=== PATIENT | male | born 2005 | race African-American/Black ===

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

== ENCOUNTER 2025-05-18 20:29 | Emergency (ER) | payer SELFPAY ==
[2025-05-18 20:53] VITALS: BP 128/64; PULSE 79; RESP 22; TEMP 35.6; O2SAT 99; BMI 26.5
--- NOTE | 2025-05-18 20:54 | ED_ITS ---
HPI - General Adult General Chief complaint: Nausea/Vomiting/Diarrhea Stated complaint: lower abd pain/vomiting Time Seen by Provider: 05/18/25 23:04 Source: patient and family Limitations: no limitations History of Present Illness ED Provider: Diana Medina PA-C HPI narrative: 19-year-old male with a history of regular marijuana use, pancreatitis, who presents with epigastric pain prior to arrival. Pain is nonradiating, unable to describe the nature of his discomfort. Associated active nausea vomiting, the patient has had numerous episodes since onset of his symptoms. Denies sick contacts with similar symptoms, diarrhea, fever, or use of alcohol. Related Data Previous Rx's ?Medication ?Instructions ?Recorded sucralfate 100 mg/mL oral 10 ml PO QID PRN abdominal p ain 05/19/25 suspension (Carafate) #300 mL Allergies Allergy/AdvReac Type Severity Reaction Status Date / Time No Known Allergies (No Known Allergy Verified 05/18/25 20:58 Allergies*) Review of Systems 2 Review of Systems: Yes all other systems are reviewed and are negative Constitutional: Constitutional: Denies fatigue and Denies fever(s) Cardiovascular: Cardiovascular: Denies chest pain and Denies dyspnea Respiratory: Respiratory: Denies cough and Denies dyspnea Gastrointestinal: Gastrointestinal: Reports abdominal pain, Reports dyspepsia, Denies diarrhea, Reports nausea and Reports vomiting Endocrine: Endocrine: Denies fatigue PMFSH Past Medical History Attestation statement: The following information was validated with the patient. Medical History Necrotizing pancreatitis Gallstone Obesity Depressed ADHD Surgical History No pertinent past surgical history Family History Family History Mother No problems noted. Father No problems noted. Social History Social History Housing: Apartment Alcohol intake: never Patient Tobacco Use Status: Never used Tobacco Smoked in Last 30 Days: No e-Cigarette/Vaping Use: Never Used Second Hand Smoke Exposure: No Use of substances other than those prescribed or required for medical reasons: Yes Substance Use Type: Marijuana Advance Directives: No Advance Directives Information Provided: No Do you have a plan to hurt others: No Plan service: No Current occupational status: employed Current occupation: [employer]or([employer]) Current occupational exposures/hazards: No Cognitive needs: No Hearing needs: No Vision needs: No Physical Exam ED Vital Signs: Vital Signs - 24 hr 05/18/25 20:53 Temperature 96.0 F L Pulse Rate 79 Respiratory Rate 22 H Blood Pressure 128/64 Pulse Oximetry 99 Oxygen Delivery Method Room Air BMI result Body Mass Index 26.5 Const Other: Alert, appears as if he does not feel well Orientation/consciousness: patient oriented x3 Resp Effort & Inspection: normal respiratory effort Cardio Other: Normal peripheral perfusion GI Other: Abdomen is soft, nondistended nontender no guarding Skin Other: Warm dry no rash Neuro General: patient oriented x3, gait normal, no focal motor deficits and CN's II- XI intact bilaterally Psych Other: Cooperative Course Course Course Narrative: Medical screening exam performed. Please refer to detailed history, exam, evaluation, and management by primary provider. History of pancreatitis. Nausea and vomiting. No alcohol use. JS Medications Administered Discontinued Medications Generic Name Dose Route Start Last Admin Trade Name María Elena PRN Reason Stop Dose Admin Ceftriaxone Sodium 2 gm 05/18/25 23:33 05/18/25 23:41 Ceftriaxone Sodium 2 Gm Vial IVPUSH 05/18/25 23:34 2 gm ONCE ONE Administration Droperidol 2.5 mg 05/18/25 23:12 05/18/25 23:28 Droperidol 5 Mg/2 Ml Vial IVPUSH 05/18/25 23:13 2.5 mg ONCE ONE Administration Sodium Chloride 2,585.49 mls @ 2,585.49 mls/hr 05/18/25 23:04 05/19/25 01:12 Ns 30 ml/kg infuse over 1 hr (2585.49 ml) 05/19/25 00:03 Infused IV Infusion .Q1H STA Ondansetron HCl 4 mg 05/18/25 20:55 05/18/25 21:00 Ondansetron Odt 4 Mg Tab.Rapdis TRANSLINGU 05/18/25 20:56 4 mg ONCE ONE Administration Sucralfate 1 gm 05/18/25 23:33 05/18/25 23:41 Sucralfate Oral Suspension 1 Gm/10 Ml Oral.Susp PO 10/04/25 23:34 1 gm ONCE ONE Administration Medical Decision Making Medical Decision Making [facility] Narrative: 19-year-old male with a history of regular marijuana use, pancreatitis, who presents with epigastric pain prior to arrival. Pain is nonradiating, unable to describe the nature of his discomfort. Associated active nausea vomiting, the patient has had numerous episodes since onset of his symptoms. Denies sick contacts with similar symptoms, diarrhea, fever, or use of alcohol. Problem: Regular marijuana use History: Per patient and his mother I have considered the following differential diagnoses: Cannabinoid induced hyperemesis, viral gastritis, pancreatitis, GERD, biliary colic, cholecystitis Plan: Screening labs obtained from triage, they are overall unremarkable, there was no elevation in his LFTs or lipase. His abdominal exam was benign. I do feel his symptoms are secondary to cannabinoid induced hyperemesis, his mom confirms that he smokes marijuana on a regular basis. We will treat with IV fluid and droperidol. I do not feel he requires imaging. Unclear, however a lactic acid was obtained, it is elevated, I believe he is dehydrated, we will repeat after fluid resuscitation. I have independently reviewed the following tests: Labs: Slight leukocytosis, not anemic, left shift noted, lactic acid 3.7, repeat lactic acid 1.3, no electrolyte abnormalities, LFTs normal, lipase not elevated at 11, urine not infected, ethanol 26 Differential Diagnosis Differential Diagnoses: The differential diagnosis associated with the presentation includes See medical decision-making Admission/Observation Consideration of admission/observation: Escalation of care including admission/observation considered Not applicable Lab Data [facility] Lab Attestation statement: I reviewed the patient's lab results. 05/18/25 21:54 05/18/25 21:54 Labs: Lab Results 05/18/25 05/19/25 05/19/25 Range/Units 21:54 00:46 00:55 WBC 11.2 H (4.8-10.8) X10*3/uL RBC 4.97 (4.60-5.80) X10*6/uL Hgb 13.4 L (14.0-18.0) g/dl Hct 38.8 L (42.0-52.0) % MCV 78.1 L (80.0-98.0) fL MCH 27.0 (27.0-33.0) pg MCHC 34.5 (31.0-36.0) g/dl RDW 13.5 (11.0-16.0) % Plt Count 236 (160-400) X10*3/uL MPV 11.1 (9.4-12.4) fL Immature Gran % (Auto) 0.4 (0.0-0.4) % Neut % (Auto) 77.3 H (45-73) % Lymph % (Auto) 15.5 L (20-40) % [place] % (Auto) 6.1 (2-11) % Eos % (Auto) 0.4 (0-4) % Baso % (Auto) 0.3 (0-2) % Lymph # (Auto) 1.7 (1.2-4.9) X10*3/uL [place] # (Auto) 0.7 (0.1-1.2) X10*3/uL Eos # (Auto) 0.0 (0.0-0.4) X10*3/uL Baso # (Auto) 0.0 (0.0-0.2) X10*3/uL Abs Immat Gran (auto) 0.04 H (0.00-0.03) X10*3/uL Absolute Neuts (auto) 8.6 H (2.0-8.3) x10*3/uL Absolute Nucleated RBC 0.000 (0.0-0.012) X10*3/uL Nucleated RBC % (auto) 0.0 (0.0-0.2) /100WBC Sodium 143 (135-145) mmol/L Potassium 3.9 (3.3-5.1) mmol/L Chloride 108 (96-108) mmol/L Carbon Dioxide 23 (22-29) mmol/L Anion Gap 16 (12-20) BUN 13 (9-16) mg/dL Creatinine 0.78 (0.5-1.4) mg/dL Estim Creat Clear Calc 162.2 Estimated GFR > 60 Random Glucose 92 (60-115) mg/dL Lactic Acid 3.7 H* (0.5-2.0) mmol/L Lactic Acid F/U @ 2Hr 1.3 (0.5-2.0) mmol/L Calcium 9.5 (8.4-10.2) mg/dL Total Bilirubin 0.4 (0.0-1.0) mg/dL AST 36 (5-37) U/L ALT 23 (0-40) U/L Alkaline Phosphatase 67 (39-117) U/L Total Protein 7.3 (6.5-8.0) g/dL Albumin 4.9 (3.5-5.0) g/dL Lipase 11 (8-78) U/L Urine Color Yellow Urine Appearance Clear Urine pH 7.0 (5.0-9.0) Ur Specific [place] 1.015 (1.005-1.025) Urine Protein Negative (Neg-Trace) mg/dL Urine Glucose (UA) Negative (Negative) mg/dL Urine Ketones Negative (Negative) mg/dL Urine Blood Negative (Negative) Urine Nitrite Negative (Negative) Ur Leukocyte Esterase Negative (Negative) Ethyl Alcohol 26 mg/dL Discharge Plan Discharge Clinical Impression: Cannabinoid hyperemesis syndrome Patient Disposition: Home, Self-Care Additional Instructions: You were treated for suspect marijuana induced nausea vomiting. If you develop symptoms again, take a hot shower. Use the Carafate as needed for upper abdominal discomfort. Your screening labs normalized after IV fluid therapy. Follow up with your communication equipment mechanic as needed. Prescriptions: New sucralfate [Carafate] 100 mg/mL suspension 10 ml PO QID PRN (Reason: abdominal pain) Qty: 300 0RF Rx Instructions: swish in mouth and swallow; use after food/drink Interventions: ED Discharge Assessment Last Done: 05/19/25 01:50 Discharge Date/Time: 05/19/25 01:51 Print Language: Maori
[2025-05-18 21:59] LABS: MANUAL DIFF FLAG NO
[2025-05-18 22:02] LABS: Hematocrit 38.8 % (42.0-52.0); Hemoglobin 13.4 g/dl (14.0-18.0); Imm Gran Abs Auto 0.04 X10*3/uL (0.00-0.03); Imm Gran Pct Auto 0.4 % (0.0-0.4); Lymphocytes Absolute Auto 1.7 X10*3/uL (1.2-4.9); Mean Corpuscular HGB Conc 34.5 g/dl (31.0-36.0); Mean Corpuscular Hemoglobin 27.0 pg (27.0-33.0); Mean Corpuscular Volume 78.1 fL (80.0-98.0); NRBC Abs Auto 0.000 X10*3/uL (0.0-0.012); NRBC Pct Auto 0.0 /100WBC (0.0-0.2); Platelet Count 236 X10*3/uL (160-400); Red Blood Count 4.97 X10*6/uL (4.60-5.80); White Blood Count 11.2 X10*3/uL (4.8-10.8)
[2025-05-18 22:17] LABS: Albumin Level 4.9 g/dL (3.5-5.0); Alkaline Phosphatase 67 U/L (39-117); Anion Gap 16 (12-20); Aspartate Amino Transferase 36 U/L (5-37); Blood Urea Nitrogen 13 mg/dL (9-16); Calcium 9.5 mg/dL (8.4-10.2); Carbon Dioxide 23 mmol/L (22-29); Chloride 108 mmol/L (96-108); Creatinine Clr Calc Pharmacy 162.2; Estimated Glomerular Filt Rate > 60; Lipase 11 U/L (8-78); Potassium 3.9 mmol/L (3.3-5.1); Sodium 143 mmol/L (135-145); Total Protein 7.3 g/dL (6.5-8.0)
[2025-05-18 22:31] LABS: Alanine Aminotransferase 23 U/L (0-40)
--- OUTSIDE RECORDS SUMMARY | 2025-05-18 22:56 | XMS_ITS | Clinical Summary ---
Author Organization [facility] 's Address [address] [place], [place] [id number] Care Team Providers Care Salesperson Florist Supplies Name Role Phone Gaviota Haynes MD Primary Care Provider [phone] Source Comments Please note that some or [...] so, obtain the minor's consent prior to disclosure.[facility] Allergies No known active allergies Medications [...] about your child you'd like help w [facility]? Not on file 04/29/2023 Share good [...] 05/18/2022 9:3 2 AM EDT Growth Chart: [facility] (Boys, 2-2 0 Years) Plan of Treatment Health Maintenance Due Date Last Done Comments DTaP/TDAP/TD VACCINES (1 - Tdap) 2012 ADOLESCENT HIV SCREENING 2018 COVID-19 Vaccine (1 - 2023-2 5 season) 2025 INFLUENZA (#1) 2025 NIRSEVIMAB VACCINES UNDER 8 MONTHS Aged Out No longer eligible based on patient's age to complete this topic Insurance [facility] Care Teams Salesperson Florist Supplies Relationship Specialty Start Date End Date Gaviota Haynes MD [address] [place] [address] [place] [id number] PCP - General General Pediatrics 06/19/21
--- OUTSIDE RECORDS SUMMARY | 2025-05-18 22:56 | XMS_ITS ---
Author Name [facility] Organization Unknown History of Medication Use Medication Directions Dispensed Refills Start Date End Date Stat us docusate (COLACE) 100 MG capsule Take by mouth 09/10/2021 active docusate (COLACE) 100 MG capsule Take by mouth 09/10/2021 active Problems Problem Status Onset Date Problem Type Date of Resolution Source Periumbilical abdominal pain active EncounterDiagnosisAct CT_C [facility] Encounters Encounter Type Encounter Reason Primary Diagnosis Location Date Ambulatory [facility] 06/08/2022 Care Team Organization Name Specialty Phone Email Start Date End Da te [facility] Gaviota Haynes Primary Care 06/10/2022
[2025-05-18] MEDS: 0.9 % Sodium Chloride 2,585.49 ML 2585.49 ML IV (23:11)
--- NOTE | 2025-05-18 23:30 | PC.NURSE ---
assumed care of pt, nausea and vomiting with abd pain for a day, admits t smoking marijuana, abd pain in the center. Mom at bedside.
--- NOTE | 2025-05-18 23:33 | PC.NURSE ---
pt medicated per MAR.
[2025-05-18] MEDS: Sucralfate Oral Suspension 1 GM/10 ML ORAL.SUSP PO (23:41)
[2025-05-18 23:58] LABS: Reflex Lactate? Lactic Acid Added
--- NOTE | 2025-05-19 00:04 | PC.NURSE ---
pt medicated per MAR, states feels weird just wants to go home. Mom a bedside advising pt he should stay, I advised pt it would be best to stay for treatment as we are already half way there. Pt laying down but expresses want to go home.
[2025-05-19 01:04] LABS: ~Lactic Acid-LAB USE ONLY 1.3 mmol/L (0.5-2.0)
[2025-05-19 01:06] LABS: Appearance Urine Clear; Glucose Urine UA Negative (Negative); PH 7.0 (5.0-9.0); Specific Gravity - Urine 1.015 (1.005-1.025)
[2025-05-19 01:13] VITALS: BP 125/84
[2025-05-19 01:16] VITALS: BP 113/59
[2025-05-19 01:50] VITALS: BP 120/67; PULSE 66; RESP 18; TEMP 36.4; O2SAT 98
== END 2025-05-19 01:51 | disposition home or self-care (01) ==
PROVIDERS: Physician Assistant; Physician Assistant Medical; Emergency Provider Emergency Medicine; PCP Physician Assistant
DX: R11.16 Cannabis hyperemesis syndrome (principal); Z87.19 Personal history of other diseases of the digestive system
CPT/HCPCS: 36415; 80053; 80307; 81003; 83605; 83690; 85025; 87040; 96361; 96374; 96375; 99284; J0696; J1790